=== PATIENT | female | born 1980 | race Caucasian/White ===

== ENCOUNTER 2019-06-12 13:20 | Emergency (ER) | payer OTHER ==
[~2019-06-12] VITALS: Ht 170.2 cm; Wt 68.5 kg
[~2019-06-12 13:20] MED LIST: NOHOMEMEDICATIONS
[2019-06-12 14:07] LABS: URINE BILIRUBIN NEGATIVE (Negative); URINE BLOOD NEGATIVE (Negative); URINE CLARITY CLEAR; URINE COLOR YELLOW; URINE GLUCOSE-RANDOM NEGATIVE (Negative); URINE KETONES NEGATIVE (Negative); URINE LEUKOCYTES-REFLEX TRACE (Negative); URINE NITRITE-REFLEX NEGATIVE (Negative); URINE PROTEIN NEGATIVE (Negative); URINE SPECIFIC GRAVITY <= 1.005 (1.005-1.030); URINE UROBILINOGEN 0.2 E.U./dl (0.2-1.0)
[2019-06-12 14:19] LABS: BACTERIA-REFLEX 1-9 Few /HPF (None Seen); SQUAMOUS 0-3 Few /LPF (0-3); URINE RBC 0-2 Rare /HPF (0-2); URINE WBC-REFLEX 0-5 Rare /HPF (0-5)
[2019-06-12 14:20] LABS: CASTS None Seen /LPF (None Seen); CRYSTALS None Seen /LPF (None Seen); MUCUS None Seen strn/LPF (None Seen)
[2019-06-12 14:30] LABS: ABSOLUTE BASOPHILS 0.1 thou/uL (0.0-0.2); ABSOLUTE EOSINOPHILS 0.2 thou/uL (0.0-0.7); ABSOLUTE LYMPHOCYTES 2.4 thou/uL (0.8-5.3); ABSOLUTE MONOCYTES 0.4 thou/uL (0.0-1.2); ABSOLUTE NEUTROPHILS 5.5 thou/uL (1.6-8.1); EOSINOPHILS 2.3 %; HEMOGLOBIN 15.8 gm/dL (12.0-15.0); LYMPHOCYTES 27.9 %; MCV 88.6 fL (80.0-100.0); MONOCYTES 4.2 %; MPV 7.6 fl. (7.2-11.1); NUCLEATED RBCS 0 /100WBC; PLATELET COUNT* 310 thou/uL (150-400); POLYS 64.6 %; RBC 5.08 mil/uL (4.20-5.00); RDW-CV 12.8 % (10.5-14.5); WBC 8.5 thou/uL (4.0-11.0)
[2019-06-12 14:38] LABS: CALCIUM 9.5 mg/dL (8.5-10.1); CREATININE 0.7 mg/dL (0.6-1.3); POTASSIUM 4.1 mmol/L (3.5-5.1)
[2019-06-12 14:42] LABS: TOTAL BILIRUBIN 0.5 mg/dL (<0.1-1.0); TOTAL PROTEIN 7.3 g/dL (6.4-8.2)
[2019-06-12] MEDS ORDERED: NORCO 5-325 TA1 EAC1 PO (15:45)
[2019-06-12] MEDS ORDERED: ROBAXIN 750 MG750 MG PO (15:45)
[2019-06-12] MEDS ORDERED: MEDROLDOSEPACK PO (15:45)
[2019-06-12] MEDS ORDERED: LIDODERM1 EACH TOP (15:46)
[2019-06-12 16:10] VITALS: BP 120/77
== END 2019-06-12 16:11 | disposition home or self-care (01) ==
LOC: M.ERS 13:20
PROVIDERS: Physician Assistant
DX: R10.84 Generalized abdominal pain (principal); M54.5 Low back pain; E89.0 Postprocedural hypothyroidism; F17.210 Nicotine dependence, cigarettes, uncomplicated

== ENCOUNTER 2021-06-15 19:36 | Emergency (ER) | payer OTHER ==
[~2021-06-15] VITALS: Ht 348 cm; Wt 71.7 kg
[~2021-06-15 19:36] MED LIST changes: +LIDODERM1 EACH TOP; +MEDROLDOSEPACK PO; +NORCO 5-325 TA1 EAC1 PO; +ROBAXIN 750 MG750 MG PO
[2021-06-15 20:30] VITALS: BP 144/71
== END 2021-06-15 23:42 | disposition left against medical advice (07) ==
LOC: M.ERS 19:36
DX: R51.9 Headache, unspecified (principal); Z53.21 Procedure and treatment not carried out due to patient leaving prior to being seen by health care provider